=== PATIENT | female | born 1965 | race Hispanic/Latino ===

== ENCOUNTER 2022-10-28 10:09 | Emergency (ER) | payer BC, SELFPAY ==
--- NOTE | ~2022-10-28 | XR_ITS ---
EXAMINATION: XR hand LT min 3V DATE: 10/28/2022 10:37 INDICATION: Left hand pain. No injury. TECHNIQUE: 3 views of left hand were obtained. COMPARISON: None. FINDINGS: Bone alignment is normal. There is an ununited fracture of tuft of fourth distal phalanx. T here is mild osteoarthritis of first carpometacarpal joint, first and second metacarpophalangeal join ts, and second and third distal interphalangeal joints. IMPRESSION: 1. Mild polyarticular osteoarthritis. 2. 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 Reviewed, dictated and finalized at location A.
[2022-10-28 10:18] VITALS: BP 161/80; PULSE 76; RESP 20; TEMP 36.6; O2SAT 98
--- NOTE | 2022-10-28 10:24 | ED.UPPEXIN ---
HPI - Extremity Injury (Upper) General Chief Complaint: Extremity Injury, Upper Stated Complaint: Left Hand Pain Source: patient and RN notes reviewed History of Present Illness HPI narrative: 57 yo F presents to urgent care with complaints of left wrist pain and swelling. Patient states her pain started last Sunday and the swelling started yesterday. Patient denies any known injury. 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 Denies any numbness or tingling. Denies any fevers, chills, chest pain, or SOB. Pt took (1) baby ASA yesterday without relief. Related Data Home Medications Medication Instructions Recorded Confirmed felodipine 5 mg tablet,extended 5 mg PO DIRECTED 10/28/22 10/28/22 release 24 hr metoprolol succinate 25 mg 25 mg PO DIRECTED 10/28/22 10/28/22 tablet,extended release 24 hr omeprazole 40 mg capsule,delayed 40 mg PO DIRECTED 10/28/22 10/28/22 release Allergies Allergy/AdvReac Type Severity Reaction Status Date / Time No Known Allergies Allergy Verified 10/28/22 10:29 Review of Systems Review of Systems: CONSTITUTIONAL: Denies fever, chills, or sweats. EYES: Denies visual changes, redness, or discharge. ENT: Denies otalgia and sore throat CARDIOVASCULAR: Denies chest pain, palpitations, or edema. RESPIRATORY: Denies cough or dyspnea. GASTROINTESTINAL: Denies abdominal pain, nausea, vomiting, or diarrhea. GENITOURINARY: Denies dysuria or hematuria. SKIN: Denies rash or itching. MUSCULOSKELETAL: left wrist pain and swelling NEUROLOGIC: Denies headache, numbness, or weakness. Pertinent positives per HPI. PMFSH Comments At the time of my signature, I reviewed and agree with the nursing past medical, surgical, social, and family history. There is no relevant family history pertinent to the patient complaint. Exam Narrative: GENERAL: This is a well-nourished, well-developed patient, in no apparent distress. HEAD: normocephalic, atraumatic. EYES: Sclera clear/white. Vision is grossly intact. EARS: External ears normal, auditory canals clear and without drainage. Hearing grossly intact. NOSE: External nose normal with no obvious nasal discharge, nares without redness, no rhinorrhea. THROAT: Mucous membranes moist, posterior pharynx clear. NECK: Neck supple, non-tender without lymphadenopathy, masses or thyromegaly. CARDIOVASCULAR: Regular rate RESPIRATORY: No worse for distress SKIN: warm, intact with no suspicious lesions or rash, good texture and turgor. NEURO: awake, alert, and oriented to person, place and time. There were no obvious focal neurologic abnormalities. EXTREMITIES: Left dorsal wrist tenderness and left distal FA mild edema. Limited ROM with wrist. Pt unable to make a fist with left hand due to pain or flex/extend left wrist due to pain. Course Course Level of Care: Express Care Visit Vital Signs Vital signs: Vital Signs Temperature 97.8 F 10/28/22 10:18 Pulse Rate 76 10/28/22 10:18 Respiratory Rate 20 10/28/22 10:18 Blood Pressure 161/80 H 10/28/22 10:18 Pulse Oximetry 98 10/28/22 10:18 Oxygen Delivery Room Air 10/28/22 10:18 Temperature 97.8 F 10/28/22 10:18 Pulse Rate 76 10/28/22 10:18 Respiratory Rate 20 10/28/22 10:18 Blood Pressure 161/80 H 10/28/22 10:18 Pulse Oximetry 98 10/28/22 10:18 Oxygen Delivery Room Air 10/28/22 10:18 Reviewed MDM - Extremity Injury (Upper) MDM Narrative Medical decision making narrative: Use the RICE method at home. May take ibuprofen and/or Tylenol if needed. If symptoms persist in 1 week after conservative treatment, follow-up with specialist. Differential Diagnosis Differential diagnosis: Likely sprain and strain of wrist, fracture of wrist and other (ganglioin cyst) Imaging Data Radiologist's impression: [facility] [id number] [place] [address] XRay Report Signed Toña
== END 2022-10-28 11:12 | disposition home or self-care (01) ==
PROVIDERS: Emergency Provider Nurse Practitioner Family; PCP Internal Medicine
DX: S63.502A Unspecified sprain of left wrist, initial encounter (principal); S66.912A Strain of unspecified muscle, fascia and tendon at wrist and hand level, left hand, initial encounter; X58.XXXA Exposure to other specified factors, initial encounter; I10 Essential (primary) hypertension
CPT/HCPCS: 73130; 99213; G0463

== ENCOUNTER 2023-01-19 14:25 | Emergency (ER) | payer BC, SELFPAY ==
[2023-01-19 14:36] VITALS: BP 146/80; PULSE 93; RESP 16; TEMP 36.7; O2SAT 96
--- NOTE | 2023-01-19 14:36 | ED.URI ---
HPI - URI/Sore Throat General Chief Complaint: Upper Respiratory Infection Stated Complaint: Cough, Runny Nose Source: patient, family and RN notes reviewed History of Present Illness HPI Narrative: 57 yo F presents to urgent care with complaints of congestion, runny nose, and cough x 2 days. Pt denies any fevers, chills, chest pain, SOB, ear pain, sore throat, N/V/D. Pt has taken Mucinex and Kenia Setzler. Related Data Home Medications Medication Instructions Recorded Confirmed felodipine 5 mg tablet,extended 5 mg PO DIRECTED 10/28/22 10/28/22 release 24 hr metoprolol succinate 25 mg 25 mg PO DIRECTED 10/28/22 10/28/22 tablet,extended release 24 hr omeprazole 40 mg capsule,delayed 40 mg PO DIRECTED 10/28/22 10/28/22 release methimazole 5 mg tablet mg 01/19/23 Allergies Allergy/AdvReac Type Severity Reaction Status Date / Time No Known Allergies Allergy Verified 10/28/22 10:29 Review of Systems Review of Systems: Pertinent positives and pertinent negatives per HPI. PMFSH Comments At the time of my signature, I reviewed and agree with the nursing past medical, surgical, social, and family history. There is no relevant family history pertinent to the patient complaint. Exam Narrative: GENERAL: This is a well-nourished, well-developed patient, in no apparent distress. HEAD: normocephalic, atraumatic. EYES: Sclera clear/white. Vision is grossly intact. EARS: External ears normal, auditory canals clear and without drainage, TMs normal without perforation. Hearing grossly intact. NOSE: External nose normal with obvious clear nasal discharge, nares without redness. THROAT: Mucous membranes moist, posterior pharynx clear. NECK: Neck supple, non-tender without lymphadenopathy, masses or thyromegaly. CARDIOVASCULAR: Regular rate and rhythm without murmurs, gallops, or rubs. RESPIRATORY: Clear to auscultation. Breath sounds equal bilaterally. No wheezes, rales, or rhonchi. GASTROINTESTINAL: Abdomen soft, non-tender, nondistended. Bowel sounds are active. No hepato-splenomegaly, or palpable masses. No guarding. SKIN: warm, intact with no suspicious lesions or rash, good texture and turgor. NEURO: awake, alert, and oriented to person, place and time. There were no obvious focal neurologic abnormalities. Course Course Level of Care: Express Care Visit Vital Signs Vital signs: Reviewed MDM - URI/Sore Throat MDM Narrative Medical decision making narrative: Viral illness may last between 7-12days; antibiotic is NOT recommended at this time. Recommend antihistamine such as Benadryl at night time and Claritin/Zyrtec/Joyce during the day. Increase your Vitamin C intake. Steam from hot showers help with congestion. Also, recommend symptomatic treatment includes: rest, fluids, increase humidity of the air at home with a humidifier in the bedroom. Recommend Acetaminophen or nonsteroidal anti-inflammatory agents(NSAIDs) as directed in the bottle to reduce fever and/pain/headache. Avoid smoking/second-hand smoke. Limit visits to areas with large crowds. Frequent hand washing or hand transfer controller is one of the best ways to prevent spread of infection. Differential Diagnosis Differential diagnosis: Likely upper respiratory infection, otitis media, sinusitis and bronchitis Critical Care Time Critical Care Time Critical Care Time: No Discharge Plan Discharge Clinical Impression: Upper respiratory infection Qualifiers: URI type: unspecified viral URI Qualified Code(s): J06.9 - Acute upper respiratory infection, unspecified Patient Disposition: Home, Self-Care Condition: Stable Instructions: Upper Respiratory Infection (DC) Additional Instructions: Viral illness may last between 7-12days; antibiotic is NOT recommended at this time. Recommend antihistamine such as Benadryl at night time and Claritin/Zyrtec/Joyce during the day. Increase your Vitamin C intake. Steam from hot showers hel
== END 2023-01-19 14:49 | disposition home or self-care (01) ==
PROVIDERS: Emergency Provider Nurse Practitioner Family; PCP Internal Medicine
DX: J06.9 Acute upper respiratory infection, unspecified (principal); I10 Essential (primary) hypertension
CPT/HCPCS: 99213; G0463

== ENCOUNTER 2023-08-10 17:25 | Emergency (ER) | payer BC, SELFPAY ==
[2023-08-10 17:31] VITALS: BP 130/83; PULSE 93; RESP 16; TEMP 36.6; O2SAT 97
--- NOTE | 2023-08-10 18:03 | ED.SKABFB ---
HPI - Skin/Abscess/Foreign Bdy General Chief complaint: Skin/Abscess/Foreign Body Stated complaint: Foreign Body in Finger Time Seen by Provider: 08/10/23 18:03 Source: patient Mode of arrival: ambulatory Limitations: no limitations History of Present Illness HPI narrative: 58-year-old female presents with complaint of foreign body to right index finger. Patient reports that she has as lakia thorn stuck and right index finger. Has tried to remove herself with tweezers and was not able to. Patient also reports poison rachel rash to bilateral lower extremities. Applying calamine lotion with no relief. All systems reviewed and negative except as noted above. Related Data Home Medications Medication Instructions Recorded Confirmed felodipine 5 mg tablet,extended 5 mg PO DIRECTED 10/28/22 08/10/23 release 24 hr metoprolol succinate 25 mg 25 mg PO DIRECTED 10/28/22 08/10/23 tablet,extended release 24 hr omeprazole 40 mg capsule,delayed 40 mg PO DIRECTED 10/28/22 08/10/23 release methimazole 5 mg tablet 2.5 mg PO DAILY 01/19/23 Allergies Allergy/AdvReac Type Severity Reaction Status Date / Time No Known Allergies Allergy Verified 10/28/22 10:29 Review of Systems Review of Systems: CONSTITUTIONAL: Denies fever, chills, or sweats. EYES: Denies visual changes, redness, or discharge. ENT: Denies rhinorrhea, congestion, sore throat, or otalgia. CARDIOVASCULAR: Denies chest pain, palpitations, or edema. RESPIRATORY: Denies cough or dyspnea. GASTROINTESTINAL: Denies abdominal pain, nausea, vomiting, or diarrhea. GENITOURINARY: Denies dysuria or hematuria. SKIN: Reports poison rachel rash to bilateral lower extremities. Foreign body to right index finger. MUSCULOSKELETAL: Denies back pain, joint pain, or myalgia. NEUROLOGIC: Denies headache, numbness, or weakness. PSYCHIATRIC: Denies anxiety or depression. All other systems reviewed are negative, except as documented in HPI. PMFSH Comments At time of signature, agree with nursing past medical, surgical, social and family history. There is no relevant family history pertinent to the presenting complaint. Exam Narrative: GENERAL: This is a well-nourished, well-developed patient, in no apparent distress. HEAD: normocephalic, atraumatic. EYES: PERRL. Sclera clear/white. Vision is grossly intact. EARS: External ears normal, auditory canals clear and without drainage, TMs normal without perforation. Hearing grossly intact. NOSE: External nose normal with no obvious nasal discharge, nares without redness, no rhinorrhea. THROAT: Mucous membranes moist, posterior pharynx clear. NECK: Neck supple, non-tender without lymphadenopathy, masses or thyromegaly. CARDIOVASCULAR: Regular rate and rhythm without murmurs, gallops, or rubs. RESPIRATORY: Clear to auscultation. Breath sounds equal bilaterally. No wheezes, rales, or rhonchi. GASTROINTESTINAL: Abdomen soft, non-tender, nondistended. Bowel sounds are active. No hepato-splenomegaly, or palpable masses. No guarding. SKIN: warm, Dry, intact , good texture and turgor. Mild erythematous fascicular lesions to right lower extremity in linear pattern. Tiny black restored removed from distal aspect right index finger, no signs infection NEURO: awake, alert, and oriented to person, place and time. There were no obvious focal neurologic abnormalities. EXTREMITIES: No joint tenderness, effusion, or edema noted. No calf tenderness. Negative Homans sign bilaterally. BACK: Nontender without deformity. No CVA tenderness. Course Course Level of Care: Express Care Visit Vital Signs Vital signs: Vital Signs Temperature 36.6 C 08/10/23 17:31 Pulse Rate 93 08/10/23 17:31 Respiratory Rate 16 08/10/23 17:31 Blood Pressure 130/83 08/10/23 17:31 Pulse Oximetry 97 08/10/23 17:31 Oxygen Delivery Room Air 08/10/23 17:31 Temperature 36.6 C 08/10/23 17:31 Pulse Rate 93 08/10/23 17:31 Respiratory Rate 16
== END 2023-08-10 18:17 | disposition home or self-care (01) ==
PROVIDERS: Emergency Provider Nurse Practitioner Family; PCP Internal Medicine
DX: S61.240A Puncture wound with foreign body of right index finger without damage to nail, initial encounter (principal); X58.XXXA Exposure to other specified factors, initial encounter; L25.5 Unspecified contact dermatitis due to plants, except food
CPT/HCPCS: 99213; G0463